=== PATIENT | female | born 1950 | race Caucasian/White ===

== ENCOUNTER → 2016-07-22 | Outpatient (CLI) | payer MEDICARE ==
[~2016-07-22] MED LIST: FENTANYL PF 100 MCG/2ML ONE; GADOBUTROL 7.5 MMOL/7.5 ML PFS ONE; MIDAZOLAM 1 MG/ML, 5ML ONE; OXYC1TAB7 PO; SERT50TA5 PO; SIMV20TA3 PO; stool
== END | disposition home or self-care (01) ==
LOC: RAD 08:18
PROVIDERS: ATTEND Registered Nurse Registered Nurse First Assistant
DX: M50.30 Other cervical disc degeneration, unspecified cervical region (principal); M50.23 Other cervical disc displacement, cervicothoracic region; M43.22 Fusion of spine, cervical region; M47.892 Other spondylosis, cervical region; M25.78 Osteophyte, vertebrae; G95.0 Syringomyelia and syringobulbia; R90.82 White matter disease, unspecified; G93.89 Other specified disorders of brain; G93.5 Compression of brain; Z98.890 Other specified postprocedural states
CPT/HCPCS: 70553; 72141; 99156; 99157; A9585; J2250; J3010

== ENCOUNTER → 2016-10-28 | Outpatient (CLI) | payer MEDICARE ==
[~2016-10-28] MED LIST changes: -FENTANYL PF 100 MCG/2ML ONE; -GADOBUTROL 7.5 MMOL/7.5 ML PFS ONE; -MIDAZOLAM 1 MG/ML, 5ML ONE
== END | disposition home or self-care (01) ==
LOC: CVU 06:40
PROVIDERS: ATTEND Registered Nurse Registered Nurse First Assistant
DX: I08.0 Rheumatic disorders of both mitral and aortic valves (principal); Q07.00 Arnold-Chiari syndrome without spina bifida or hydrocephalus; I65.29 Occlusion and stenosis of unspecified carotid artery; F17.210 Nicotine dependence, cigarettes, uncomplicated; Z86.73 Personal history of transient ischemic attack (TIA), and cerebral infarction without residual deficits
CPT/HCPCS: 93306